=== PATIENT | female | born 1970 | race Caucasian/White ===

== ENCOUNTER → 2020-05-05 08:39 | Outpatient (CLI) | payer OTHER, SELFPAY ==
--- NOTE | ~2020-05-05 | XR_ITS ---
EXAMINATION: XR hand RT min 3V EXAM DATE: 05/05/2020 08:55 INDICATION: Injury/pain. Initial encounter. TECHNIQUE: Right hand frontal, lateral and oblique projections obtained and reviewed. There is no pr ior study for comparison. FINDINGS: Right metacarpal bones are unremarkable. There are no acute fractures or dislocations iden tified. There is no subcutaneous gas. The soft tissue is unremarkable. There are no radiopaque fo reign bodies. IMPRESSION: 1. XR hand RT min 3V exam without acute osseous findings. Reviewed, dictated and finalized at location B. [employer]
== END ==
PROVIDERS: PCP Pediatrics; Visit Provider Pediatrics
DX: M79.641 Pain in right hand (principal)
CPT/HCPCS: 73130

== ENCOUNTER → 2020-07-28 07:00 | Outpatient (CLI) | payer OTHER, SELFPAY ==
--- NOTE | ~2020-07-28 | MR_ITS ---
EXAMINATION: MR shoulder LT wo con DATE: 07/28/2020 07:42 INDICATION: Chronic left shoulder pain TECHNIQUE: Magnetic resonance imaging (MRI) of the left shoulder was performed without intravenous co ntrast. Sequences included axial PD-weighted FS FSE, coronal oblique PD-weighted FS FSE, coronal obli que T2-weighted FS FSE, sagittal PD-weighted FS FSE, and sagittal T1-weighted SE. COMPARISON: None. FINDINGS: Coracoacromial arch: The acromion undersurface is curved in morphology (type II). The coracoacromial ligament is normal. M ild acromioclavicular osteoarthritis. Rotator cuff: Mild to moderate supraspinatus and infraspinatus tendinopathy without discrete tear. The subscapulari s and teres minor tendons are normal. Normal rotator cuff muscle bulk and signal. Biceps tendon, glenoid labrum and glenohumeral cartilage: Long head of the biceps tendon is normal. Glenoid labrum is normal with normal small sublabral sulcus at the biceps labral complex. Glenohumeral cartilage is normal. Fluid: Physiologic amount of fluid in the glenohumeral joint and biceps tendon sheath. No loose osteochondra l bodies. Mild increased fluid signal in the subacromial/subdeltoid bursa consistent with mild bursit is. Bones: Normal marrow signal with no edema, fracture or abnormal marrow replacing process. IMPRESSION: 1. Mild to moderate supraspinatus and infraspinatus tendinopathy without discrete tear. 2. Mild subacromial/subdeltoid bursitis. Reviewed, dictated and finalized at location B. IMPRESSION: 1. Mild to moderate supraspinatus and infraspinatus tendinopathy without discre te tear. 2. Mild subacromial/subdeltoid bursitis.
== END ==
PROVIDERS: PCP Family Medicine; Visit Provider Orthopaedic Surgery
DX: M75.82 Other shoulder lesions, left shoulder (principal); M75.52 Bursitis of left shoulder
CPT/HCPCS: 73221

== ENCOUNTER 2024-01-08 06:42 | Day surgery (SDC) | payer OTHER, SELFPAY ==
[2023-12-26 10:08] VITALS: BMI 27.9
[2023-12-27 12:45] VITALS: BMI 27.5
--- NOTE | 2024-01-07 12:51 | PM.HPGS ---
History of Present Illness History of Present Illness Consent: Risks, benefits, and alternatives have been discussed and questions answered. Patient agrees to proceed with procedure. Chief complaint: Upper Abdominal Pain, Gerd Narrative: Burak Villa is a 53 year old female with daily epigastric pain and burning, varying in intensity. Currently on omeprazole 20 mg BID and famotidine BID with some improvement. Review of Systems Review of Systems: All systems reviewed & are unremarkable except as noted in HPI and below PMFSH Past Medical History Medical History Anxiety Asthma delivery delivered Constipation GERD (gastroesophageal reflux disease) Iliotibial band syndrome affecting right lower leg Impingement syndrome of right shoulder Impingement syndrome, shoulder, left Metatarsophalangeal joint sprain Tendinitis of left rotator cuff Upper abdominal pain Surgical History Surgical History History of tubal ligation Family History Family History Other Family history of alcoholism Family history of arthritis Family history of mental disorder Hypertension Social History Social History Smoking status: Never smoker Alcohol intake: current Alcohol use details: 3 per week Substance use type: does not use Living arrangements: with family 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 Gender identity (if verbalized by the patient): Female Spiritual care concerns: No Meds Home Medications and Allergies Home Medications Medication Instructions Recorded Confirmed Type budesonide-formoterol HFA 160 2 puff inhalation Q12H 11/18/19 01/08/24 History mcg-4.5 mcg/actuation aerosol inhaler (Symbicort) calcium carbonate (Calcium 500) 500 mg PO DAILY 11/18/19 01/08/24 History cetirizine 10 mg tablet (Zyrtec) 10 mg PO DAILY 11/18/19 01/08/24 History cholecalciferol (vitamin D3) 25 25 mcg PO DAILY 11/18/19 01/08/24 History mcg (1,000 unit) tablet (Vitamin D3) fluticasone propionate 50 1 spray intranasal DAILY 11/18/19 01/08/24 History mcg/actuation nasal spray,suspension (Flonase Allergy Relief) venlafaxine 150 mg 150 mg PO DAILY 11/18/19 01/08/24 History capsule,extended release 24 hr (Effexor XR) famotidine 40 mg tablet 40 mg PO DAILY 12/20/23 01/08/24 History omalizumab 75 mg/0.5 mL 75 mg subcut DIRECTED 12/20/23 01/08/24 History subcutaneous auto-injector (Xolair) pantoprazole 20 mg tablet,delayed 20 mg PO BID 1 month #60 tabs 12/20/23 01/08/24 Rx release tiotropium bromide 1.25 2 puff inhalation Q24H 12/20/23 01/08/24 History mcg/actuation mist for inhalation (Spiriva Respimat) Allergies Allergy/AdvReac Type Severity Reaction Status Date / Time latex Allergy Mild Rash Verified 01/08/24 07:08 Exam Const: General: alert Orientation/consciousness: patient oriented x3 Resp: Auscultation: clear to auscultation bilaterally Cardio: Rhythm: regular rhythm GI: GI Palp: Yes Soft to palpation and No Tenderness to palpation present (GI) Neuro: General: patient oriented x3 Assessment and Plan Assessment and plan (1) Upper abdominal pain: Code(s): R10.10 - Upper abdominal pain, unspecified Status: Acute Assessment and Plan: EGD with possible biopsy or dilatation or cautery.
--- NOTE | 2024-01-07 13:48 | WPDANESEPPF ---
Anes - Initial Pre Proc Eval Procedure: Operation Date: 01/08/24 08:30 Proposed Procedures p Esophagogastroduodenoscopy - Johan Queen MD Date/Time: 01/07/24 13:48 Surgeon: Johan Queen MD Pre Op Diagnosis: Upper Abdominal Pain, Gerd Patient Data Age: 53 Gender: F Height: 1.63 m Weight: 72.8 kg Allergies Allergy/AdvReac Type Severity Reaction Status Date / Time latex Allergy Mild Rash Verified 01/08/24 07:08 Home Medications Medication Instructions Recorded Confirmed Type budesonide-formoterol HFA 160 2 puff inhalation Q12H 11/18/19 01/08/24 History mcg-4.5 mcg/actuation aerosol inhaler (Symbicort) calcium carbonate (Calcium 500) 500 mg PO DAILY 11/18/19 01/08/24 History cetirizine 10 mg tablet (Zyrtec) 10 mg PO DAILY 11/18/19 01/08/24 History cholecalciferol (vitamin D3) 25 25 mcg PO DAILY 11/18/19 01/08/24 History mcg (1,000 unit) tablet (Vitamin D3) fluticasone propionate 50 1 spray intranasal DAILY 11/18/19 01/08/24 History mcg/actuation nasal spray,suspension (Flonase Allergy Relief) venlafaxine 150 mg 150 mg PO DAILY 11/18/19 01/08/24 History capsule,extended release 24 hr (Effexor XR) famotidine 40 mg tablet 40 mg PO DAILY 12/20/23 01/08/24 History omalizumab 75 mg/0.5 mL 75 mg subcut DIRECTED 12/20/23 01/08/24 History subcutaneous auto-injector (Xolair) pantoprazole 20 mg tablet,delayed 20 mg PO BID 1 month #60 tabs 12/20/23 01/08/24 Rx release tiotropium bromide 1.25 2 puff inhalation Q24H 12/20/23 01/08/24 History mcg/actuation mist for inhalation (Spiriva Respimat) Patient hx anesthesia problems: none Family hx anesthesia problems: none Results Review: All pre-operative results and documents have been reviewed as part of the pre-operative evaluation. [facility] Past Medical History Medical History (Updated 01/07/24 @ 13:49 by Jamie Vallejo DO) Anxiety Asthma delivery delivered Constipation GERD (gastroesophageal reflux disease) Iliotibial band syndrome affecting right lower leg Impingement syndrome of right shoulder Impingement syndrome, shoulder, left Metatarsophalangeal joint sprain Tendinitis of left rotator cuff Upper abdominal pain Surgical History Surgical History (Updated 01/07/24 @ 13:49 by Jamie Vallejo DO) History of tubal ligation Family History Family History Other Family history of alcoholism Family history of arthritis Family history of mental disorder Hypertension Social History Social History Smoking status: Never smoker Alcohol intake: current Alcohol use details: 3 per week Substance use type: does not use Living arrangements: with family 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
[2024-01-08 07:12] VITALS: BP 134/7; PULSE 74; RESP 18; TEMP 36.3; O2SAT 99
[2024-01-08] MEDS: LACTATED RINGERS 1,000 ML 150 ML IV CONT (07:24)
[2024-01-08 08:38] VITALS: BP 91/50; PULSE 74; RESP 14; O2SAT 96
[2024-01-08 08:48] VITALS: BP 88/72; PULSE 70; RESP 16; O2SAT 100
[2024-01-08 08:58] VITALS: BP 110/73; PULSE 68; RESP 16; O2SAT 99
--- NOTE | 2024-01-08 09:54 | WPDANESPN ---
Anes - Prog Note Post-Op Date/Time: 01/08/24 09:54 Cardiovascular status: normal Respiratory status: normal Airway patency: baseline Mental status: baseline Post-Op hydration status: normal Vital Signs: Last Vital Signs Temp 36.3 C L 01/08/24 07:12 Pulse 68 01/08/24 08:58 Resp 16 01/08/24 08:58 BP 110/73 01/08/24 08:58 Pulse Ox 99 01/08/24 08:58 O2 Del Method Room Air 01/08/24 08:58 Pain Score (VAS): 0 I/O: Intake & Output 01/07/24 01/08/24 01/08/24 23:59 07:59 15:59 Intake Total 550 Balance 550 Post-procedural complaints: none Patient Feedback: Patient satisfied with anesthetic care. Other Findings: Patient vital signs back to baseline. Patient denies nausea and vomiting. Patient's pain under control. Patient OK for discharge.
== END 2024-01-08 09:35 | disposition home or self-care (01) ==
PROVIDERS: PCP Family Medicine; Visit Provider Internal Medicine Gastroenterology
PROC: 0DJ08ZZ Inspection of Upper Intestinal Tract, Via Natural or Artificial Opening Endoscopic (ICD-10-PCS; CPT 43235; principal; 2024-01-08 08:30)
DX: K21.9 Gastro-esophageal reflux disease without esophagitis (principal); K31.7 Polyp of stomach and duodenum
CPT/HCPCS: 43251; 43239

== ENCOUNTER 2024-01-08 07:00 | Outpatient (NON) | payer OTHER, SELFPAY | END 2024-01-09 07:43 | disposition home or self-care (01) | PROVIDERS: PCP Family Medicine; Visit Provider Internal Medicine Gastroenterology | DX: K21.00 Gastro-esophageal reflux disease with esophagitis, without bleeding (principal); K29.80 Duodenitis without bleeding; K31.7 Polyp of stomach and duodenum | CPT/HCPCS: 88305 ==

== ENCOUNTER 2025-02-26 08:33 | Outpatient (CLI) | payer OTHER, SELFPAY ==
--- NOTE | ~2025-02-26 | CT_ITS ---
EXAMINATION: CT abdomen pelvis w con DATE: 02/26/2025 09:27 INDICATION: Right lower quadrant abdominal pain. TECHNIQUE: Computed tomography (CT) of the abdomen and pelvis was performed with 100 mL Omnipaque 350 intravenous contrast. Automated exposure control and iterative reconstruction technique were employed. The dose-length product was 346.77 mGy-cm. COMPARISON: None. FINDINGS: The visualized portions of the lung bases demonstrate mild atelectasis. No pleural effusion. The heart size is normal. No pericardial effusion. The liver, gallbladder, spleen, pancreas, adrenal glands, and right kidney are normal. There is a 4 mm stone in left kidney. There is a ring-shaped device in the vagina. There are no dilated loops of bowel. The appendix is normal. There are no pathologically enlarged lymph nodes. There is no free intraperitoneal fluid. There is severe lumbar spondylosis. IMPRESSION: 1. No etiology for the patient's symptoms. Reviewed, dictated and finalized at location E.
--- OUTSIDE RECORDS SUMMARY | 2025-02-26 08:49 | XMS_ITS | Encounter Summary ---
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 Historical Provider Final Res ult documented in this encounter Visit Diagnoses Not on filedocumented in this encounter Care Teams Communication Consultant Relationship Specialty Start Date End Date Chary Hitchcock MD [address] [facility] [address] [place] [address] PCP - General 06/27/18 documented as of this encounter
--- OUTSIDE RECORDS SUMMARY | 2025-02-26 08:49 | XMS_ITS | Clinical Summary ---
Author Organization [facility] Address [address] [place] [address] Care Team Providers Care Crisis Worker Name Role Phone Chary Hitchcock MD Primary Care Provider [phone] Chary Hitchcock MD Unavailable [phone] Source Comments [facility],non-owned Affiliates and Associated Physician Practices is amultiple site organization consisting of ambulatory clinics and hospital sitesin [place], [place], [place] and [place]. This disclosure is being madepursuant to the Care Everywhere program and may not contain all information available regarding this patient. Last updated 18.[facility] Allergies No known active allergies Medications * Be aware that medications may not be up to date on this document. Alwaysverify current medications with the patient. venlafaxine XR 24hr (EFFEXOR XR) 150 MG capsule 08/01/2018 Acti ve beclomethasone dipropionate (QVAR) 80 MCG/ACT inhaler Inhale 2 puffs by mouth 02/01/2017 Active omeprazole (PRILOSEC) 20 MG capsule 02/01/2017 Active Cetirizine HCl (ZYRTEC ALLERGY PO) Active Social History Tobacco Use Types Packs/Day Years Used Date Smoking Tobacco: Never Smokeless Tobacco: Never Tobacco Cessation:Counseling Given: No Alcohol Use Standard Drinks/Week Comments Yes 0 (1 standard drink = 0.6 oz pur e alcohol) seldom Comments No Sex and Gender Information Value Date Recorded Sex Assigned at Not on file Legal Sex Female 6:18 AM TOUR MANAGER Gender Identity Not on file Sexual Orientation Not on file Last Filed Vital Signs Vital Sign Reading Time Taken Comments Blood Pressure 124/78 10/21/2018 8:48 AM CDT Pulse 74 10/21/2018 8:48 AM CDT Temperature 36.7 C (98 F) 07/29/2015 2:30 PM CDT Respiratory Rate 10 07/29/2015 2:30 PM CDT Oxygen Saturation 98% 07/29/2015 2:30 PM CDT Inhaled Oxygen Concentration - - Weight 81.6 kg (180 lb) 10/21/2018 8:48 AM CDT Height 161.5 cm (5' 3.6) 10/21/2018 8:48 AM CDT Body Mass Index 31.29 10/21/2018 8:48 AM CDT Plan of Treatment Health Maintenance Due Date Last Done Comments COLOGUARD (AGES 45-75) - COL ON CA SCREENING 1971 COLON MONITORING 1971 COLONOSCOPY - COLON CA SCREENING 1971 CT COLONOGRAPHY - COLON CA SCREENING 1971 Colorectal Cancer Screening 1971 FIT - COLON CA SCREENING 1971 FLEX SIG - COLON CA SCREENING 1971 LIPID TESTING 1971 MAMMOGRAM 1971 HIV SCREENING 1986 HEPATITIS C SCREENING 06/06/1989 DTAP/TDAP/TD VACCINES (1 - Tdap) 1990 HEPATITIS B VACCINE (1 of 3 - 19+ 3-dose series) 1990 PAP SMEAR 1992 SCREENING FOR DIABETES 10/21/2018 06/05/2013 PNEUMOCOCCAL VACCINE 50+ (1 of 1 - PCV) 2021 ZOSTER VACCINE (1 of 2) 2021 DEPRESSION SCREENING 05/14/2024 COVID-19 VACCINE (1 - 2023-2 5 season) 2025 INFLUENZA VACCINE (#1) 2025 HIB VACCINE Aged Out No longer eligi ble based on patient's age to complete this topic HPV VACCINE Aged Out No longer eligi ble based on patient's age to complete this topic MENINGOCOCCAL (Group B) VACC INE SHARED DECISION-MAKING Aged Out No longer eligibl e based on patient's age to complete this topic MENINGOCOCCAL GROUPS A/C/Y/W VACCINE Aged Out No longer eligible b ased on patient's age to complete this topic Procedures Procedure Name Priority Date/Time Associated Diagnosis Comments COMPREHENSIVE METABOLIC PANEL Routine 06/05/2013 11:51 AM TOUR MANAGER from Last 3 Months or Most Recently Relevant to Health Maintenance Results * (ABNORMAL) COMPREHENSIVE METABOLIC PANEL (06/05/2013 11:51 AM TOUR MANAGER) BUN 16 7 - 26 mg/dL [facility] Creatinine 0.8 0.6 - 1.2 mg/dL [facility] eGFR by MDRD > 60 ML/MIN [facility] Comment: Chronic kidney disease: <60 ml/min Kidney failure: <15 ml/min Based on BSA of 1.73m2. Sodium 139 136 - 145 mmol/L [facility] Potassium 4.0 3.5 - 4.5 mmol/L [facility] Chloride 98 98 - 107 mmol/L [facility] CO2 30(H) 22 - 29 mmol/L [facility] Glucose 111 70 - 115 mg/dL [facility] Calcium 10.9(H) 8.4 - 10.2 mg/dL [facility] Protein Total 8.3 6.0 - 8.3 g/dL [facility] Albumin 3.8 3.4 - 5.0 g/dL [facility] Bilirubin Total 0.3 0.2 - 1.2 mg/dL [facility] Alkaline Phosphatase 79 40 - 150 Units/L [facility] ALT 16 0 - 55 Units/L [facility] AST 18 5 - 34 Units/L [facility] Anion Gap 15 8 - 18 [facility] BUN/Creatinine Ratio 20 7 - 23 [facility] Osmolality Calculation 275 270 - 300 mOsm/kg [facility] Albumin/Globulin Ratio 0.8(L) 1.1 - 2.3 [facility] Serum 06/05/2013 11:5 1 AM TOUR MANAGER 06/05/2013 12:45 PM TOUR MANAGER Aminata Cardoza MD LAB - CHEMISTRY ORDERABLES nal Result [place] [id number] [address] [phone] from Last 3 Months or Most Recently Relevant to Health Maintenance Insurance [facility] Member Subscriber Plan / Payer ( fective 2018-Present) Name:Burak Villa V Relation to Subscriber:Self Name:BURAK VILLA V Payer ID:[id number] (NAIC) Type:O Address: [address] [facility] Member Subscriber Plan / Payer (Ef fective 2018-Present) Name:Burak Villa V Relation to Subscriber:Self Name:BURAK VILLA V Payer ID:[id number] (NAIC) Type:O Address: [address] [facility] CARE Member Subscriber Plan / Payer ( fective 2018-Present) Name:Allen Burak Chang Relation to Subscriber:Self Name:VILLABURAK V Payer ID:[id number] (NAIC) Type:[employer] Address: [address] [facility] CARE CARE CARE Member Subscriber Plan / Payer ( fective 2018-Present) Name:Burak Villa V Relation to Subscriber:Self Name:BURAK VILLA V Payer ID:[id number] (NAIC) Type:O Address: [address] Member Subscriber Plan / Payer ( fective 2018-) Name:Burak Villa V Relation to Subscriber:Self Name:BURAK VILLA V Payer ID:[id number] (NAIC) Type:O Address: [address] Member Subscriber Plan / Payer ( fective 2018-) Name:Allen Burak Downing Relation to Subscriber:Self Name:BURAK VILLA V Payer ID:[id number] (NAIC) Type:O Address: [address] [facility] CARE Member Subscriber Plan / Payer (Ef fective 2018-Present) Name:Burak Villa V Relation to Subscriber:Self Name:BURAK VILLA V Payer ID:[id number] (NAIC) Type:O Address: [address] CARE CARE CARE CARE CARE CARE Member Subscriber Plan / Payer (Ef fective 2018-Present) Name:Burak Villa V Relation to Subscriber:Self Name:BURAK VILLA V Payer ID:[id number] (NAIC) Type:HMO Address: [address] CARE CARE Care Teams Crisis Worker Relationship Specialty Start Date End Date Chary Hitchcock MD [address] [phone] PCP - General 11/04/20 Chary Hitchcock MD [address] [phone] 11/04/20
--- OUTSIDE RECORDS SUMMARY | 2025-02-26 08:49 | XMS_ITS | Clinical Summary ---
Author Organization [facility] Address [address] [place] [id number] Care Team Providers Care Correspondence Dictator Name Role Phone Chary Hitchcock MD Primary Care Provider Allergies Active Allergy Reactions Criticality Noted Date Comments Latex Unknown 01/30/2019 Medications multivitamin capsule Rx: Multivitamins Capsule Active cetirizine 10 mg capsule daily Active fluticasone propionate (FLONASE) 50 mcg/actuation nasal spray Administer into affected nostril(s) 7 Active Symbicort 160-4.5 mcg/actuation inhaler INHALE TWO PUFFS BY MOUTH TWICE A DAY (MORNING AND EVENING) 0 Active albuterol HFA (PROVENTIL HFA,VENTOLIN HFA,PROAIR HFA) 90 mcg/actuation inhaler Inhale 7 Active venlafaxine XR (EFFEXOR-XR) 75 mg 24 hr capsule 1 Active IPRATROPIUM BROMIDE NASL 2 Active azelastine (ASTELIN) 137 mcg (0.1 %) nasal spray Administer into each nostril 2 (two) times a day 2 Active Spiriva Respimat 1.25 mcg/actuation inhaler 2 Active ondansetron (ZOFRAN) 8 mg tablet Take 1 tablet (8 mg total) by mouth every 8 (eight) hours as needed 3 Active baclofen (LIORESAL) 10 mg tablet Take 1 tablet (10 mg total) by mouth 3 (three) times a day 5 Active dicyclomine (BENTYL) 10 mg capsule TAKE 1 CAPSULE BY MOUTH TWICE DAILY NEEDED FOR ABDOMINAL PAIN 4 Active hydrOXYzine (ATARAX) 25 mg tablet TAKE 1 TO 2 TABLETS BY MOUTH AT NIGHT NEEDED FOR SLEEP 5 Active Xolair 150 mg/mL syringe inject (225MG) by subcutaneous route every 2 weeks 4 Active omalizumab (Xolair) 75 mg/0.5 mL auto-injector Inject under the skin every 28 (twenty-eight) days Active Xolair 75 mg/0.5 mL syringe 5 Active omalizumab (Xolair) 150 mg/mL auto-injector 4 Active omalizumab (XOLAIR SUBQ) 4 Active lansoprazole (PREVACID) 15 mg capsule Take 1 capsule (15 mg total) by mouth daily Active pantoprazole DR (PROTONIX) 20 mg EC tablet Take 1 tablet (20 mg total) by mouth 2 (two) times a day Active estradioL (ESTRING) 2 mg (7.5 mcg /24 hour) vaginal ringIndication s:Atrophic Vaginitis associated with Menopause Insert 2 mg into the vagina every 3 (three) months follow package directions 1 each 3 5 09/12/19 26 Active Active Problems Problem Noted Date Diagnosed Date Early menopause 09/11/2024 Gastroesophageal reflux disease 04/24/2024 At risk for osteoporosis - early menopause 04/20 Vaginal atrophy 01/30/2019 Mild major depression, single episode 02/01/2017 Mild persistent asthma without complication 01/13 Chronic constipation 02/01/2017 Resolved Problems Problem Noted Date Diagnosed Date Resolved Date Stress incontinence in female 12/31/2017 01/30/2019 Early onset menopause 10/07/20152018 Immunizations Immunization Administration Dates Next Due Influenza, Quadrivalent, Spl it, Intramuscular 01/24/2019 Influenza, Quadrivalent, Spl it, Preservative Free, Intramuscular 01/30/2020,01/14/2018,12/28/2017,02/11 Influenza, Trivalent, Preser vative Free, Intramuscular 02/06/2013 Influenza, Unspecified 02/06/2023,2021,03/04/2021,02/21,01/28/2020,01/28/2019 Pfizer Sars-Cov-2 Bivalent V accination (12+ YRS) 01/18/2022 Tdap 05/22/2016,03/07/2016 ZOSTER Recombinant 12/21/2022,03/29/2022 Surgical History Surgery Date Site/Laterality Comments SECTION 1998,2002 TUBAL LIGATION 05/14/2002 - 05/13/2003 ABLATION Medical History Medical History Date Comments Acid reflux Asthma Early onset menopause 10/07/2015 Stress incontinence in female 12/31/2017 Prediabetes Family History Medical History Relation Name Comments Hypertension Father Luis Alcohol abuse Mother Delaney Hypertension Mother Delaney Depression Sister Alida Mental illness Sister Alida Breast cancer Neg Hx Relation Name Status Comments Father Luis Mother Delaney Sister Alida Social History Tobacco Use Types Packs/Day Years Used Date Smoking Tobacco: Never Smokeless Tobacco: Never Tobacco Cessation:Counseling Given: Not Answered Alcohol Use Standard Drinks/Week Comments Yes 0 (1 standard drink = 0.6 oz pur e alcohol) AUDIT-C Answer Date Recorded Frequency of Alcohol Consumption Monthly or less 02/05/2020 Average Number of Drinks 1 or 2 020 Frequency of Binge Drinking Not on file 01/13 Comments No Sex and Gender Information Value Date Recorded Sex Assigned at Not on file Legal Sex Female 7:54 PM [employer]JECT [employer]GER[employer] Gender Identity Female 02/10/2021 12:36 PM CDT Sexual Orientation Straight 02/10/2021 12 :36 PM CDT Obstetrics History Para Term AB IAB SAB Ectopic Multiple Livin g Live Births 2 2 2 2 Date Outcome GA Total Labor Labor/2nd/3rd Weight Sex Type Anes PTL Maureen A1 A5 Name Clin Term Term Last Filed Vital Signs Vital Sign Reading Time Taken Comments Blood Pressure 120/74 09/11/2024 10:16 AM CDT Pulse 0 10/07/2015 1:00 PM CDT Temperature - - Respiratory Rate - - Oxygen Saturation - - Inhaled Oxygen Concentration - - Weight 70.3 kg (155 lb) 09/11/2024 10:16 AM CDT Height 162.6 cm (5' 4.02) 09/11/2024 10:16 AM C DT Body Mass Index 26.59 09/11/2024 10:16 AM CDT Plan of Treatment Health Maintenance Due Date Last Done Comments Colon Cancer Screening-Colonoscopy 1970 Depression Screening 1970 Hepatitis C Screening 1970 Hepatitis B Screening 1989 Pneumococcal vaccine <65 (1 of 2 - PCV) 1990 Covid-19 Vaccine (6 - 2024-2 6 season) 2025 01/18/2022, 08/11/2021, 01/07/2021, Additional history exists Influenza Vaccine (#1) 2025 , 02/20/2022, 03/04/2021, Additional history exists Cervical Cancer Screening 09/11/20252024, 09/11/2024, 02/10/2021, Additional history exists Regular Well Visit/Exam 18-64 09/11/2025, 04/26/2023, 04/20/2022, Additional history exists Breast Cancer Screening-Mammogram 10/02/2025 10/02/2024, 08/02/2023, 06/01/2022, Additional history exists DTaP/Tdap/Td Vaccine (3 - Td or Tdap) 05/22/2026 05/22/2016, 03/07/2016 Zoster Vaccine Completed 12/21/2022, 03/29/2022 Procedures Procedure Name Priority Date/Time Associated Diagnosis Comments SCREENING MAMMOGRAM BILATERAL W KIT Schedule Routine, Read Routine (OP Routine) 10/02/2024 1:24 PM CDT Screening mammogram, encounter for PAP AND HIGH RISK HPV, REFLEX TO GENOTYPING Routine 09/11/2024 10:45 AM CDT Well woman exam from Last 3 Months or Most Recently Relevant to Health Maintenance Results * Screening Mammogram Bilateral W Kit (10/02/2024 1:24 PM CDT) Anatomical Region Laterality Modality Breast Bilateral Mammography Impressions 10/02/2024 1:34 PM CDT Bilateral No evidence of malignancy in either breast. OVERALL BI-RADS FINAL ASSESSMENT: 1 - Negative RECOMMENDATION: Recommend bilateral annual screening mammography. Narrative 10/02/2024 1:34 PM CDT EXAMINATION: Screening Mammogram Bilateral W Kit: 10/02/2024 COMPARISON: Relevant prior studies available at the time of interpretation were reviewed. TECHNIQUE: Mammography was performed with 2D and digital breast tomosynthesis (DBT) images. CAD was utilized. BREAST PARENCHYMAL COMPOSITION: There are scattered areas of fibroglandular density. FINDINGS: Bilateral There is no suspicious mass, calcification, or architectural distortion in either breast. us Self Screening Mammogram IMG MAMMO PROCEDURES Fi nal Result * Pap and High Risk HPV and Genotyping (Cytology Component) (09/11/2024 10:45 AM CDT) Endocervical (Pap test) 09/11/2024 10:45 AM CDT 09/11/2024 7:36 PM CDT Narrative [facility]OLOG[facility] - 09/22/2024 8:54 AM CDT EPIC results best viewed via link to PDF [facility] Leslye [facility]un[facility] Surgical Pathology [place], [place] [id number] Note to Patients: This report may contain a detailed description of human tissue sent by a health care provider to the laboratory for pathologic evaluation. The content of this report is essential for diagnosis and may provide important critical findings. This information may be unfamiliar to patients to review without a medical professional present. It is advised that the patient review this report in the presence of a health care provider who can answer questions and explain the details. CYTOPATHOLOGY REPORT FINAL Patient Name: BURAK VILLA V. Gender: F : 1970 (Age: 54) Address: [address] [place] [address] Hospital #: [id number] Service: UNKNOWN Location: Patient Type: [facility] SPECIMEN Taken: 09/11/2024 Received: 09/11/2024 Accessioned: 09/15/2024 Reported: 09/22/2024 Physician(s): Marianne López M.D. FINAL INTERPRETATION SOURCE OF SPECIMEN Liquid based Thin Prep pap with HPV: STATEMENT OF ADEQUACY - Satisfactory for evaluation - No endocervical/transformation zone sample present in a post menopausal patient GENERAL CATEGORIZATION: - Negative for squamous intraepithelial lesion or malignancy Comments (Normal-Negative for High Risk HPV) HPV HR 16- Not detected HPV HR 18-Not detected HPV HR non 16/18- Not detected Interpretive Data Nucleic acid amplification for detection of high-risk Human Papilloma virus (HPV) is performed by the Mitra Marilyn 6800 HPV test. This assay specifically detects HPV- 16 and HPV-18 genotypes. The following HPV genotypes are detected as high-risk HPV: HPV-31, 33, 35, 39, 45, 51, 52, 56, 58, 59, 66, and 68. This assay has been approved by the [place] Food and Drug Administration for detection of HPV in cervical specimens collected by a physician using an endocervical brush/spatula or cervical broom and placed in the ThinPrep Pap Test PreservCyt collection containers. The performance characteristics of this test have been verified by the [facility] Molecular Infectious Disease laboratory. Correlate with reported cytology results, as applicable. Interpretive data last revised 22 neva/09/22/2024 08:54 MARIAH Foster(ASCP) Report Electronically Reviewed and Signed Out By MARIAH Foster(ASCP) 09/22/2024 08:54:04 Cervicovaginal Cytology (Pap Test) Disclaimer: The Pap test is a screening test used to detect cervical cancer and its precursors; it is not a diagnostic procedure. False negative and false positive results do occur. Pap test results should be interpreted in the context of pertinent clinical information and biopsy results as indicated. [facility] Clinical Laboratory Improvement Amendments (CLIA) mandate that cytologic and histologic results be correlated for laboratory quality control technician & improvement standards. FOR ALL HIGH-GRADE CASES we request submission of follow-up histological material and/or reports that have not been previously provided so that we may fulfill said required standards. Gross Description A. Liquid based Thin Prep pap with HPV: Cervical/vaginal - Screening ThinPrep Clinical Diagnosis and History Last Menstrual Period: PM Menstrual History: Post-menopausal The patient is a 54 year old female with routine. Report Images and scanned documents, if included only viewable in PDF version The performance characteristics of some immunohistochemical stains, in-situ hybridization and fluorescence in-situ hybridization tests and immunophenotyping by flow cytometry cited in this report (if any) were determined by the Surgical Pathology Department at [facility] as part of an ongoing quality control microbiology supervisor program and in compliance with federally mandated regulations drawn from the Clinical Laboratory Improvement Act of 1988 (CLIA '88). Some of these tests rely on the use of analyte specific reagents and are subject to specific labeling requirements by the [place] Food and Drug Administration. Such diagnostic tests may only be performed in a facility that is certified by the Department of Health and Human Services as a high complexity laboratory under CLIA '88. The FDA has determined that such clearance or approval is not necessary. This test is used for clinical purposes. It should not be regarded as investigational or for research. Nevertheless, federal rules concerning the medical use of analyte specific reagents require that the following disclaimer be attached to the report: This test was developed and its performance characteristics determined by the Surgical Pathology Department of [facility]. It has not been cleared or approved by the U. S. Food and Drug Administration. Sole López MD LAB CYTOLOGY ORDERABLES Fi nal Result Performing Organization Address City/State/[facility] Co de Phone Number PATHOLOGY [facility] from Last 3 Months or Most Recently Relevant to Health Maintenance Insurance [employer] [facility] H[facility]/PPO Address: [facility] [address] [place] [address] [facility] H[facility]/PPO Address: [facility] [id number] [place], [place] [phone] Care Teams Correspondence Dictator Relationship Specialty Start Date End Date Chary Hitchcock MD [address] [facility] [address] [place] [address] PCP - General 06/27/18
[2025-02-26 09:11] LABS: Estimated Glomerular Filt Rate 58
== END 2025-02-26 08:34 | disposition home or self-care (01) ==
PROVIDERS: PCP Family Medicine; Visit Provider Nurse Practitioner Family
DX: R10.31 Right lower quadrant pain (principal); R14.0 Abdominal distension (gaseous); K21.9 Gastro-esophageal reflux disease without esophagitis; K59.00 Constipation, unspecified
CPT/HCPCS: 74177; Q9967